=== PATIENT | male | born 1990 | race Hispanic/Latino ===

== ENCOUNTER 2018-10-10 12:06 | Emergency (ER) | payer MEDICAID, OTHER ==
[2018-10-10 12:26] VITALS: BMI 33.5
[2018-10-10 12:53] LABS: BASO # 0.1 K/uL (0.0-0.2); BASO % 0.9 % (0.0-2.0); HEMOGLOBIN 15.2 g/dL (12.0-18.0); LYMPH # 0.5 K/uL (1.0-4.3); LYMPH % 7.5 % (20.0-40.0); MEAN CELL VOLUME 99.2 fL (80.0-94.0); MEAN CORPUSCULAR HEMOGLOBIN 33.4 pg (27.0-31.0); MEAN CORPUSCULAR HGB CONC 33.7 g/dL (33.0-37.0); MEAN PLATELET VOLUME 8.4 fL (7.2-11.7); MONO # 0.5 K/uL (0.0-0.8); MONO % 6.9 % (0.0-10.0); NEUT # 5.7 K/uL (1.8-7.0); NEUT % 84.7 % (50.0-75.0); NRBC % 0.1 % (0.0-2.0); PLATELET COUNT 172 K/uL (130-400); RBC 4.55 Mil/uL (4.40-5.90); WHITE BLOOD COUNT 6.8 K/uL (4.8-10.8)
--- NOTE | 2018-10-10 12:59 | RAD ---
Date of service: 10/10/2018 PROCEDURE: CHEST RADIOGRAPH, 1 VIEW HISTORY: SOB COMPARISON: 01/22/2018. FINDINGS: LUNGS: The lungs are well inflated and clear. PLEURA: No pneumothorax or pleural effusion. CARDIOVASCULAR: The heart is normal in size. No aortic atherosclerotic calcifications present. OSSEOUS STRUCTURES: Within normal limits for the patient's age. VISUALIZED UPPER ABDOMEN: Normal. OTHER FINDINGS: None. IMPRESSION: No active pulmonary disease.
[2018-10-10 13:21] LABS: BANDS 4 % (0-2); LYMPHOCYTE 7 % (20-40); MONOCYTE 6 % (0-10); NEUTROPHIL 83 % (50-75); PLATELET ESTIMATE NORMAL (NORMAL); TOTAL CELLS COUNTED 100
[2018-10-10 13:26] LABS: ALB/GLOB RATIO 1.3 (1.0-2.1); ALBUMIN 4.9 g/dL (3.5-5.0); ALT/SGPT 166 U/L (21-72); AST/SGOT 396 U/L (17-59); BLOOD UREA NITROGEN 7 mg/dL (9-20); CALCIUM 9.4 mg/dl (8.6-10.4); GFR NON-AFRICAN AMERICAN > 60
[2018-10-10 13:40] LABS: BARBITURATES, UR NEGATIVE (NEGATIVE); BENZODIAZEPINES, UR NEGATIVE (NEGATIVE); OPIATES, UR NEGATIVE (NEGATIVE); PHENCYCLIDINE, UR NEGATIVE (NEGATIVE)
--- NOTE | 2018-10-10 13:42 | C.PDOC ---
History Of Present Illness 28yo male, otherwise well, sent to ER by his PMD for evaluation due to increased heart rate and increased blood pressure. Patient states he has been sweaty, clammy and increasingly anxious. He denies any drug abuse, or other psychiatric issues. No chest pain, shortness of breath, abdominal pain, or other complaints. PMD: Dr. Browne Time Seen by Provider: 10/10/18 12:39 Chief Complaint (Nursing): High Blood Pressure History Per: Patient History/Exam Limitations: no limitations Onset/Duration Of Symptoms: Mins Current Symptoms Are (Timing): Still Present Associated Symptoms: denies: Chest Pain, Dyspnea, Dizziness, Blurred Vision, Focal Weakness, Headache Past Medical History Reviewed: Historical Data, Nursing Documentation, Vital Signs Vital Signs: Last Vital Signs Temp 98.9 F 10/10/18 12:22 Pulse 121 H 10/10/18 12:22 Resp 20 10/10/18 12:22 BP 155/96 H 10/10/18 12:22 Pulse Ox 97 10/10/18 12:22 - Medical History PMH: No Chronic Diseases Denies: Depression Surgical History: No Surg Hx Family History: States: No Known Family Hx - Social History Hx Tobacco Use: No Hx Alcohol Use: Yes Hx Substance Use: No - Immunization History Hx Tetanus Toxoid Vaccination: No Hx Influenza Vaccination: No Hx Pneumococcal Vaccination: No Review Of Systems Except As Marked, All Systems Reviewed And Found Negative. Constitutional: Negative for: Fever, Chills Cardiovascular: Negative for: Chest Pain Respiratory: Negative for: Shortness of Breath Gastrointestinal: Negative for: Abdominal Pain Psych: Positive for: Anxiety Physical Exam - Physical Exam Appears: Non-toxic, No Acute Distress Skin: Normal Color, Warm Head: Atraumatic, Normacephalic Eye(s): bilateral: Normal Inspection, PERRL, EOMI Neck: Normal ROM, Supple Chest: Symmetrical Cardiovascular: Other (tachycardia) Respiratory: Normal Breath Sounds Neurological/Psych: Oriented x3, Normal Speech, Normal Cognition ED Course And Treatment - Laboratory Results Result Diagrams: 10/10/18 12:51 10/10/18 12:51 Lab Results: Total Bilirubin 1.4 mg/dL (0.2-1.3) H 10/10/18 12:51 AST 396 U/L (17-59) H 10/10/18 12:51 ALT 166 U/L (21-72) H 10/10/18 12:51 Alkaline Phosphatase 100 U/L (38-126) 10/10/18 12:51 Total Protein 8.6 g/dL (6.3-8.3) H 10/10/18 12:51 Albumin 4.9 g/dL (3.5-5.0) 10/10/18 12:51 Globulin 3.7 gm/dL (2.2-3.9) 10/10/18 12:51 Albumin/Globulin Ratio 1.3 (1.0-2.1) 10/10/18 12:51 ECG: Interpreted By Me, Viewed By Me ECG Rhythm: Sinus Tachycardia Interpretation Of ECG: normal axis, normal interval, no st/t wave changes Rate From EC O2 Sat by Pulse Oximetry: 97 (RA) Pulse Ox Interpretation: Normal Against Medical Advice - AMA Patient Left Against Medical Advice: 1434 The patient declines treatment and wishes to leave against medical advice. The risks of leaving were explained to the patient and include, but are not limited to, worsening of known or currently unknown conditions, permanent disability and from undiagnosed or untreated conditions. The patient has the capacity to make this informed decision and understands my explanation of the current medical problem and risks of leaving. The patient voluntarily accepts these risks and signed an AMA form documenting our conversation. The patient was given the opportunity to ask questions and reconsider. The patient was encouraged to return to the Emergency Department at any time for further care. Medical Decision Making Medical Decision Making: Impression: anxiety Plan: -- Labs -- EKG -- Urine drug screen -- Zanax 0.25mg PO 1350 UDS negative for illicit substance use 1413 Patient now admits to alcohol use; he has not had a drink today patient reports alcohol withdrawal but denies any seizure like symptoms Patient given Librium and Xanax PO 1434 Patient states he wishes to leave AMA and declines any further treatment. Risks of leaving against medical advice discussed with patient and he still wishes to leave. Patient is awake, alert and oriented x 3 Disposition Counseled Patient/Family Regarding: Studies Performed, Diagnosis - Disposition Disposition: AGAINST MEDICAL ADVICE Disposition Time: 14:34 Condition: STABLE Forms: [employer] (K[place]z) - Clinical Impression Clinical Impression: Alcohol dependence with withdrawal - Scribe Statement The provider has reviewed the documentation as recorded by the Scribe Sharita Jayant Provider Attestation: All medical record entries made by the Cas were at my direction and p ersonally dictated by me. I have reviewed the chart and agree that the record accurately reflects my personal performance of the history, physical exam, medical decision making, and the department course for this patient. I have also personally directed, reviewed, and agree with the discharge instructions and disposition.
[2018-10-10 14:03] VITALS: BP 143/86; PULSE 130; RESP 22; TEMP 98.7
[2018-10-10 14:35] VITALS: O2SAT 97
== END 2018-10-10 14:34 | disposition left against medical advice (07) ==
LOC: C.ER 12:06
DX: F10.239 Alcohol dependence with withdrawal, unspecified (principal); Y90.9 Presence of alcohol in blood, level not specified
CPT/HCPCS: 71045; 80053; 82948; 84443; 84484; 85025; 96374; 99285; G0480; J2060